=== PATIENT | male | born 1980 | race Caucasian/White ===

== ENCOUNTER 2018-11-10 10:19 | Day surgery (SDC) | payer SELFPAY ==
[~2018-11-10] VITALS: Ht 177.8 cm; Wt 101.6 kg
[~2018-11-10 10:19] MED LIST: FLOMAX0.4 MG PO; TORADOL30 MG/ML PO
[2018-11-10 11:13] VITALS: BP 141/82; BMI 32.2
[2018-11-10 11:24] VITALS: Ht 177.8 cm; Wt 101.6 kg
--- NOTE | 2018-11-10 17:30 | NUR ---
PATIENT STATES HE IS READY FOR DISCHARGE. STATES HE HAS CONTINUED TO DRIBBLE SMALL AMOUNTS OF RED-TINGED URINE ALMOST CONTINUOUSLY. DISCHARGE INSTRUCTIONS REVIEWED. DISCHARGED HOME VIA WHEELCHAIR TO PRIVATE VEHICLE WITH SPOUSE
--- NOTE | 2018-11-11 08:57 | OP ---
PATIENT NAME: OLE CARTER MEDICAL RECORD: [id number] :76 LOCATION:[facility] ADMISSION DATE: SURGEON: MAGNOLIA HUNT MD DATE OF OPERATION: 11/10/2018 DIAGNOSIS: A 6 mm left mid ureteral stone. PROCEDURES: Cystoscopy, left ureteral stent insertion 6-Montserratian x 26 cm with string attached, left ESWL times 4000 shocks. FINDINGS: Radiodense left mid ureteral stone. BLOOD LOSS: None. CLINICAL HISTORY: This is a 37-year-old male, who came to the Emergency Room with left flank pain. He had flank pain for over 2 weeks previously. He had a CT scan of the abdomen and pelvis, which showed left hydronephrosis down to a left mid ureteral 6-mm stone. There are no other stones in the urinary system. He has significant pain and needs to be treated. He has a script for Woodruff 7.5 as well as Flomax. He is not allergic to any medications. He was given Ancef generation technician to the OR. DESCRIPTION OF PROCEDURE: The patient was given induction of general anesthesia. He was then placed on to the treatment table. The stone was visualized in 2 planes and targeted. A 3000 shocks were given to the stone. At this point, I decided to insert the ureteral stent. I did not wish to insert the ureteral stent, right at the onset because I did not wish to move the stone from its current location. Cystoscopy was done using a 21-Montserratian cystoscope with the patient in lithotomy position. The patient does not have an obstructive prostate. He does have a tall bladder neck. He has single ureteral orifices bilaterally with no bladder tumors. An open-ended ureteral catheter was inserted into the left ureteral orifice, and then through the lumen of the ureteral orifices, a Sensor wire was placed up the ureter. I went beside the stone and up into the renal pelvis. The open-ended ureteral catheter was then removed, leaving the wire in place. Over the wire, we inserted the 6-Montserratian x 26 cm ureteral stent. Once the stent was in correct position then the Sensor wire was withdrawn entirely. The distal end of the stent was pushed into the bladder using a pusher. The bladder was then emptied through the cystoscope sheath. The scope was then removed. The string on the distal end of stent is maintained. It hangs out of the urethra. It was tied to itself in a knot and cut shorter. During the stent placement what looked like a solitary monolithic stone up to this point was actually seem to have fragmented and the fragments rate themselves along the length of the stent. The remaining 1000 shocks was devoted to treating the remaining fragments along the length of the stent. The patient was then awakened and brought to the recovery room. I will see him in followup in 2 weeks' time with a KUB. TRANSINT:[id number] Voice Confirmation ID: [id number] DOCUMENT ID: [id number] OPERATIVE REPORT [id number] OLE CARTER, MAGNOLIA Reno MD at 0857 CC: [id number] DICTATION DATE: 11/10/18 1455 MODEL BUILDER: 11/10/181955 [facility] 11/10/18 [id number] [place] [address]
== END 2018-11-10 17:30 | disposition home or self-care (01) ==
LOC: D.OPS 10:19 → D.PAN 14:25 → D.OPS 16:00 → D.PAN 16:00 → D.OPS 17:30
PROVIDERS: ATTEND Urology
DX: N20.0 Calculus of kidney (principal); N13.30 Unspecified hydronephrosis

== ENCOUNTER → 2018-11-21 15:31 | Outpatient (CLI) | payer SELFPAY | END | disposition home or self-care (01) | LOC: D.RAD 11:00 | PROVIDERS: ATTEND Urology | DX: N20.0 Calculus of kidney (principal) ==

== ENCOUNTER → 2018-11-28 10:25 | Outpatient (CLI) | payer SELFPAY | END | disposition home or self-care (01) | LOC: D.RAD 10:25 | PROVIDERS: ATTEND Urology | DX: N20.0 Calculus of kidney (principal) ==